=== PATIENT | male | born 1980 | race Caucasian/White ===

== ENCOUNTER 2022-03-23 14:57 | Emergency (ER) | payer OTHER, SELFPAY ==
[2022-03-23 15:20] VITALS: BP 135/86; PULSE 96; RESP 16; TEMP 36.2; O2SAT 99; BMI 23.0
--- NOTE | 2022-03-23 17:03 | ED_ITS ---
HPI - General Adult General: Chief complaint: General Medical Stated complaint: rapid weight loss Time Seen by Provider: 03/23/22 17:03 History of Present Illness: Patient comes in for nausea and vomiting and diarrhea starting on Wednesday. Patient did have a low-grade fever at first but has continued to persist with vomiting and diarrhea. Spouse reports that he has lost about 5 pounds over the last 3 days. Patient appears unwell but not toxic. Patient does have episodes of vomiting in the ER. Associated symptoms: Reports nausea and vomiting Review of Systems Const: Reports: fever(s) GI: Reports: nausea, vomiting and diarrhea PFSH ED PFSH: Medical History Environmental and seasonal allergies Surgical History No history of previous surgery Family History Other Cancer Dementia Diabetes Hypertension Stroke Social History Smoking and tobacco status: never smoked Second hand smoke exposure: No Smoking risk assessment/counseling performed?: No Alcohol intake: never Desire information about alcohol rehabilitation?: No Counseling given: No Desire information about substance/drug rehabilitation?: No Counseling given: No Adopted: No Caregiver/support person: No Lives independently: Yes Household members: spouse Housing: House Marital status: Number of children: 2 service: No Current occupational status: employed Pets and animals: Yes Pets & animals: cat(s) and dog(s) Current gender identity: Male Physical Exam Const: COMMON NORMALS: alert HENMT: COMMON NORMALS: normocephalic HEAD & SCALP: normocephalic Neck/C-Spine: COMMON NORMALS: full ROM Chest: COMMONS NORMALS: normal palpation of entire chest wall GI: COMMON NORMALS: Soft to palpation and non-tender PALPATION: Yes Soft to palpation : COMMON NORMALS: Yes no CVA tenderness BLADDER/KIDNEY EXAM: Yes no CVA tenderness Back/Pelvis: COMMON NORMALS: no CVA tenderness Neuro: SENSORIUM/ORIENTATION: Yes alert Skin: COMMON NORMALS: turgor normal GENERAL SKIN EXAM: turgor normal Course Vital Signs: Vital signs: Vital Signs Temperature 97.2 F L 03/23/22 15:20 Pulse Rate 96 03/23/22 15:20 Respiratory Rate 16 03/23/22 15:20 Blood Pressure 135/86 03/23/22 15:20 Pulse Oximetry 99 03/23/22 15:20 [facility] - General Adult Medical Decision Making 42-year-old male comes in today with nausea vomiting and diarrhea for the last 3 days. Patient continues have stomach cramping and has lost a total of 5 pounds. On exam abdomen soft with some mild tenderness generalized. Vital signs are normal. Skin is warm and dry. Oral mucosa is dry. Differential diagnosis is gastroenteritis, dehydration, appendicitis. Laboratory values suggested dehydration with sodium 131 and potassium 3.1 and a creatinine 1.0. CBC was unremarkable. CT scan noted enteritis. Patient was rehydrated with 2 L of crystalloid solution, given ondansetron and Lomotil for symptoms. Patient did improved after IV fluids. Patient was able to tolerate sips of water water. Patient reported understanding of care plan and need for follow-up or return to the ER. Lab Data 03/23/22 17:46 03/23/22 17:46 Radiology Impressions Abdomen/Pelvis CT 03/23/22 17:14 IMPRESSION: 1. Prominent fluid in the small bowel and ascending colon suggestive of an enterocolitis. 2. Diverticulosis without diverticulitis. 3. Several left hepatic lobe sub cm cysts. 4. Bilateral renal cysts, negative for follow-up advised. COMMENTS: Consistent with the [employer]'s Incidental Findings Committee white paper (J Am Dominic Radiol 2018): Any incidental renal lesion less than 1 cm or classified as too small to characterize, or any incidental cystic renal lesion characterized as simple-appearing, is likely benign. No follow-up imaging is recommended for these lesions per consensus recommendations based on imaging criteria. Laboratory Results WBC 5.7 10^3/uL (4.0-10.0) 03/23/22 17:46 RBC 5.67 10^6/uL (4.1-5.3) H 03/23/22 17:46 Hgb 16.3 g/dL (11.7-16.6) 03/23/22 17:46 Hct 48.4 % (42.0-52.0) 03/23/22 17:46 MCV 85.4 fl (80-94) 03/23/22 17:46 MCH 28.7 pg (28.0-34.0) 03/23/22 17:46 MCHC 33.7 g/dL (30.0-36.0) 03/23/22 17:46 RDW 12.3 % (12.1-15.1) 03/23/22 17:46 Plt Count 183 10^3/cmm (130-400) 03/23/22 17:46 MPV 8.8 fL (7.4-10.4) 03/23/22 17:46 Neut % (Auto) 52.4 % 03/23/22 17:46 Lymph % (Auto) 35.2 % 03/23/22 17:46 [place] % (Auto) 11.1 % 03/23/22 17:46 Eos % (Auto) 0.5 % 03/23/22 17:46 Baso % (Auto) 0.5 % 03/23/22 17:46 Neut # (Auto) 3.00 10^3/uL (1.8-7.7) 03/23/22 17:46 Lymph # (Auto) 2.0 10^3/uL (0.8-4.8) 03/23/22 17:46 [place] # (Auto) 0.6 10^3/uL (0.2-0.9) 03/23/22 17:46 Eos # (Auto) 0.0 10^3/uL (0.0-0.8) 03/23/22 17:46 Baso # (Auto) 0.0 10^3/uL (0.0-0.1) 03/23/22 17:46 Nucleated RBC % (auto) 0 % 03/23/22 17:46 Nucleated RBCs # 0.0 /100WBC 03/23/22 17:46 Sodium 131 mmol/L (136-145) L 03/23/22 17:46 Potassium 3.1 mmol/L (3.5-5.1) L 03/23/22 17:46 Chloride 96 mmol/L (98-107) L 03/23/22 17:46 Carbon Dioxide 25 mmol/L (22-29) 03/23/22 17:46 Anion Gap 13.1 (5-19) 03/23/22 17:46 BUN 9 mg/dL (6-20) 03/23/22 17:46 Creatinine 1.0 mg/dL (0.7-1.2) 03/23/22 17:46 GFR Calculation 81.9 mL/min (90-130) L 03/23/22 17:46 Glucose 94 mg/dL (65-115) 03/23/22 17:46 Calculated Osmolality 270 mOsm/kg (285-295) L 03/23/22 17:46 Calcium 9.5 mg/dL (8.5-10.5) 03/23/22 17:46 Total Bilirubin 1.1 mg/dL (0.15-1.2) 03/23/22 17:46 AST 20 U/L (0-40) 03/23/22 17:46 ALT 15 U/L (0-41) 03/23/22 17:46 Alkaline Phosphatase 62 U/L (40-130) 03/23/22 17:46 C-Reactive Protein 9.5 mg/L (0.0-4.9) H 03/23/22 17:46 Total Protein 7.8 g/dL (6.6-8.7) 03/23/22 17:46 Albumin 4.1 g/dL (3.5-5.2) 03/23/22 17:46 Globulin 3.7 g/dL (1.3-4.6) 03/23/22 17:46 Urine Color Yellow (Yellow) 03/23/22 18:21 Urine Appearance Clear (CLEAR) 03/23/22 18:21 Urine pH 5 (5-7) 03/23/22 18:21 Ur Specific [place] 1.005 (1.005-1.030) 03/23/22 18:21 Urine Protein Neg (Negative) 03/23/22 18:21 Urine Glucose (UA) Norm (Normal) 03/23/22 18:21 Urine Ketones Negative (Negative) 03/23/22 18:21 Urine Blood 2+ (Negative) H 03/23/22 18:21 Urine Nitrate Negative (Negative) 03/23/22 18:21 Urine Bilirubin Neg (Negative) 03/23/22 18:21 Urine Urobilinogen Norm mg/dL (Negative) 03/23/22 18:21 Ur Leukocyte Esterase Negative (Negative) 03/23/22 18:21 Urine RBC 0-4 /hpf (0-2) H 03/23/22 18:21 Urine WBC 0-4 /hpf (0-5) H 03/23/22 18:21 Ur Squamous Epith Cells None /hpf (0-5) 03/23/22 18:21 Amorphous Sediment Not Reportable 03/23/22 18:21 Urine Bacteria 3+ /hpf (NONE) H 03/23/22 18:21 Discharge Plan Discharge Patient Disposition: Home Clinical Impression: Gastroenteritis, Dehydration Condition: Stable Prescriptions: New ondansetron 4 mg tablet,disintegrating 4 mg PO Q8H PRN (Reason: nausea and vomiting) Qty: 10 0RF Imodium A-D 2 mg tablet 2 mg PO Q4H PRN (Reason: loose stool) Qty: 20 0RF Rx Instructions: administer after each loose stool until symptoms controlled; do not exceed 16 mg per 24 hrs No Action azithromycin [Zithromax Z-Theron] 250 mg tablet See Rx Instructions PO .COMPLEX Qty: 6 0RF Rx Instructions: For 250 mg dose pack: take 500 mg today (day 1), then 250 mg for 4 days (days 2-5) PO levocetirizine [Xyzal] 5 mg tablet 5 mg PO DAILY 90 Days Qty: 90 1RF Discharge Orders: Discharge ED (Routine); Ordered 03/23/22 Ordered By: Diego Yeh Referrals: Kimberly Boyce, [facility] [Primary Care Provider] - Discharge Diet: Advance as tolerated Discharge Activity: Increase activity as tolerated Patient Instructions: Dehydration (ED), Gastroenteritis (ED) Activity Restrictions/Additional Instructions: Drink frequent sips of water and electrolyte solution to maintain hydration. Use electrolyte solution at least 24 ounces a day to help maintain electrolytes especially while having diarrhea stools. Drinking small sips of water even teaspoon size every 5 minutes will maintain hydration. Follow-up with primary care as needed. Return to ER for worsening symptoms such as blood in vomit or stool, lightheadedness or passing out, fever greater than 100.4, uncontrolled abdominal pain, or new concerns. Coding Level of Care Code ED Prototype Sewer for Thor Fwd Exam Detailed
--- NOTE | 2022-03-23 17:14 | CTR_ITS ---
PROCEDURE INFORMATION: Exam: CT Abdomen And Pelvis With Contrast Exam date and time: 03/23/2022 5:50 PM Age: 42 years old Clinical indication: Other: Weight loss, diarrhea TECHNIQUE: Imaging protocol: Computed tomography of the abdomen and pelvis with contrast. Radiation optimization: All CT scans at this facility use at least one of these dose optimization techniques: automated exposure control; mA and/or kV adjustment per patient size (includes targeted exams where dose is matched to clinical indication); or iterative reconstruction. Contrast material: OMNI 350; Contrast volume: 100 ml; Contrast route: INTRAVENOUS (IV); COMPARISON: No relevant prior studies available. RADIATION DOSE METRICS: Total DLP (mGy-cm): 425.15 FINDINGS: Liver: Several left hepatic lobe sub cm cysts. Gallbladder and bile ducts: Normal. No calcified stones. No ductal dilation. Pancreas: Normal. No ductal dilation. Spleen: Normal. No splenomegaly. Adrenal glands: Normal. No mass. Kidneys and ureters: Bilateral renal cysts, negative for follow-up advised. Stomach and bowel: Prominent fluid in the small bowel and ascending colon suggestive of an enterocolitis. Diverticulosis without diverticulitis. Appendix: No evidence of appendicitis. Intraperitoneal space: Unremarkable. No free air. No significant fluid collection. Vasculature: Unremarkable. No abdominal aortic aneurysm. Lymph nodes: Unremarkable. No enlarged lymph nodes. Urinary bladder: Unremarkable as visualized. Reproductive: Unremarkable as visualized. Bones/joints: Unremarkable. No acute fracture. Soft tissues: Unremarkable. CT/CT abdomen pelvis w con* [id number] IMPRESSION: 1. Prominent fluid in the small bowel and ascending colon suggestive of an enterocolitis. 2. Diverticulosis without diverticulitis. 3. Several left hepatic lobe sub cm cysts. 4. Bilateral renal cysts, negative for follow-up advised. COMMENTS: Consistent with the [employer]'s Incidental Findings Committee white paper (J Am Dominic Radiol 2018): Any incidental renal lesion less than 1 cm or classified as too small to characterize, or any incidental cystic renal lesion characterized as simple-appearing, is likely benign. No follow-up imaging is recommended for these lesions per consensus recommendations based on imaging criteria.
[2022-03-23] MEDS: iohexol 350 mg/mL 500 mL Btl (per mL) IV (18:00)
[2022-03-23] MEDS: sodium chloride 0.9% 1,000 ML 999 ML IV (18:09)
[2022-03-23 18:14] LABS: Basophils % 0.5 %; Eosinophils % 0.5 %; Hematocrit 48.4 % (42.0-52.0); Hemoglobin 16.3 g/dL (11.7-16.6); Lymphocytes % 35.2 %; Mean Corpuscular HGB Conc 33.7 g/dL (30.0-36.0); Mean Corpuscular Hemoglobin 28.7 pg (28.0-34.0); Mean Corpuscular Volume 85.4 fl (80-94); Mean Platelet Volume 8.8 fL (7.4-10.4); Monocytes # 0.6 10^3/uL (0.2-0.9); Monocytes % 11.1 %; Neutrophils % 52.4 %; Nucleated Red Blood Cells % 0 %; Platelet Count 183 10^3/cmm (130-400); Red Blood Count 5.67 10^6/uL (4.1-5.3); Red Cell Distribution Width 12.3 % (12.1-15.1); White Blood Count 5.7 10^3/uL (4.0-10.0)
[2022-03-23 18:30] LABS: Alanine Aminotransferase 15 U/L (0-41); Albumin Level 4.1 g/dL (3.5-5.2); Alkaline Phosphatase 62 U/L (40-130); Anion Gap 13.1 (5-19); Aspartate Amino Transferase 20 U/L (0-40); Blood Urea Nitrogen 9 mg/dL (6-20); C Reactive Protein 9.5 mg/L (0.0-4.9); Calcium 9.5 mg/dL (8.5-10.5); Carbon Dioxide 25 mmol/L (22-29); Chloride 96 mmol/L (98-107); Globulin 3.7 g/dL (1.3-4.6); Glomerular Filtration Rate 81.9 mL/min (90-130); Glucose 94 mg/dL (65-115); Osmolality Calculated 270 mOsm/kg (285-295); Potassium 3.1 mmol/L (3.5-5.1); Sodium 131 mmol/L (136-145); Total Bilirubin 1.1 mg/dL (0.15-1.2); Total Protein 7.8 g/dL (6.6-8.7)
[2022-03-23 18:51] LABS: Add Urine Microscopic? YES; Bilirubin Urine Neg (Negative); Blood Urine 2+ (Negative); Glucose Urine UA Norm (Normal); Ketones Urine Negative (Negative); Leukocyte Esterase Urine Negative (Negative); Nitrate Urine Negative (Negative); Protein Urine Neg (Negative); Specific Gravity, Urine 1.005 (1.005-1.030); Urine Appearance Clear (CLEAR); Urine Color Yellow (Yellow); Urobilinogen Urine Norm (Negative); pH Urine 5 (5-7)
[2022-03-23] MEDS: lactated ringers 1,000 ML 999 ML IV (18:55)
[2022-03-23] MEDS: potassium chloride ER 20 mEq Tablet PO (19:03)
[2022-03-23] MEDS: diphenoxylate/atropine Tablet 2 TAB PO (19:03)
[2022-03-23 19:09] LABS: Add Urine Culture? Yes; Bacteria Urine 3+ /hpf; RBC Urine 0-4 /hpf (0-2); WBC Urine 0-4 /hpf (0-5)
== END 2022-03-23 19:40 | disposition home or self-care (01) ==
PROVIDERS: Emergency Provider Nurse Practitioner Family; PCP Nurse Practitioner
DX: K52.9 Noninfective gastroenteritis and colitis, unspecified (principal); E86.0 Dehydration
CPT/HCPCS: 74177; 80053; 81001; 85025; 86140; 87086; 96360; 96361; 99285; J7030; J7120; Q9967

== ENCOUNTER → 2022-12-04 11:05 | Outpatient (BNVA) | payer OTHER, SELFPAY | PROVIDERS: PCP Nurse Practitioner; Visit Provider Nurse Practitioner Family | DX: R53.83 Other fatigue (principal) | CPT/HCPCS: 80053; 84443; 85025; 86618; 86666; 86757 ==

== ENCOUNTER 2022-12-14 00:04 | Emergency (ER) | payer OTHER, SELFPAY ==
[2022-12-14 00:14] VITALS: BP 116/82; PULSE 76; RESP 16; TEMP 36.7; O2SAT 97; BMI 23.0
--- NOTE | 2022-12-14 00:20 | ED_ITS ---
HPI - Anxiety General: Stated Complaint: Confused\Does feel like himself Time Seen by Provider: 12/14/22 00:12 Source: patient Mode of arrival: ambulatory Limitations: no limitations History of Present Illness: 42-year-old male states over the last 2 to 3 days has been feeling fatigued and sluggish also have anxiety. His states that he had taken her Paxil for roughly a week and it started feeling like this after he has not taken the last 3 to 4 days. He states that he just feels like he is in a brain fog. Denies chest pain denies headache he is answering all my questions appropriately Associated symptoms: Deny chest pain, chills, fever(s), nausea or vomiting Review of Systems Const: Denies: fever(s) or chills Eyes: Denies: blurry vision ENMT: Denies: throat pain or dental pain Card: Denies: chest pain Resp: Denies: dyspnea GI: Denies: abdominal pain, nausea, vomiting or diarrhea Musc: Denies: neck pain or back pain Skin/Breast: Denies: rash PFSH ED PFSH: Medical History Environmental and seasonal allergies Surgical History No history of previous surgery Family History Other Cancer Dementia Diabetes Hypertension Stroke Social History Smoking and tobacco status: never smoked Second hand smoke exposure: No Smoking risk assessment/counseling performed?: No Alcohol intake: never Desire information about alcohol rehabilitation?: No Counseling given: No Substance/Drug Use: never Desire information about substance/drug rehabilitation?: No Counseling given: No Adopted: No Caregiver/support person: No Lives independently: Yes Household members: spouse Housing: House Marital status: Number of children: 2 service: No Current occupational status: employed Pets and animals: Yes Pets & animals: cat(s) and dog(s) Do you think of yourself as: Straight/Heterosexual Current gender identity: Male Physical Exam Const: COMMON NORMALS: no acute distress, patient oriented x3 and healthy appearing HENMT: COMMON NORMALS: normocephalic and atraumatic HEAD & SCALP: normocephalic and atraumatic Eye: COMMON NORMALS: Equal, round and reactive pupils present and EOMs intact bilaterally PUPIL: Yes Equal, round and reactive pupils present Neck/C-Spine: COMMON NORMALS: full ROM and supple Chest: COMMONS NORMALS: normal inspection of the chest Resp: COMMON NORMALS: normal respiratory effort, No retractions, No use of accessory muscles and clear to auscultation bilaterally AUSCULTATION: clear to auscultation bilaterally Cardio: COMMON NORMALS: regular rate, regular rhythm and No murmurs present (Cardio) RATE: regular rate RHYTHM: regular rhythm Extremity: COMMON NORMALS: normal to inspection and full ROM Neuro: COMMON NORMALS: patient oriented x3, moves all extremities and no focal motor deficits CRANIAL NERVES: Yes CN normal except as noted SPEECH: speech normal GAIT: Yes Normal gait present MOTOR EXAM: 5/5 motor strength present throughout Psych: COMMON NORMALS: mental status grossly normal, Normal thought process present and cooperative THOUGHT PROCESS: Normal thought process present Skin: COMMON NORMALS: no rashes or lesions noted and no wounds GENERAL SKIN EXAM: no rashes or lesions noted MDM - Anxiety Medical Decision Making Patient presents here with feelings of fatigue and anxiety. I did plan on drawing blood when they went to stick me said he did not want it and he just wanted to leave I did do a full neuro exam he has no signs of any neurodeficits I did speak to him at length and informed him I would like to check baseline lab work since he is feeling this way but he states that he just wanted reassurance and wants to just go home and follow-up his PCP Medical Records I reviewed the patient's medical records. Lab Data I reviewed the patient's lab results. Discharge Plan Discharge Patient Disposition: Home Clinical Impression: Anxiety Condition: Stable Prescriptions: No Action bupropion HCl [Wellbutrin XL] 150 mg tablet extended release 24 hr 150 mg PO QAM Qty: 30 0RF prednisone 20 mg tablet 20 mg PO BID Qty: 6 0RF hydroxyzine pamoate 50 mg capsule 50 mg PO BID PRN (Reason: sinus symptoms) Qty: 60 5RF Discharge Orders: Discharge ED (Routine); Ordered 12/14/22 Ordered By: Susy Arellano Referrals: Maribeth Holloway MD [Primary Care Provider] - 1-3 days Discharge Diet: Advance as tolerated Discharge Activity: Resume usual activity Patient Instructions: Anxiety (ED) Coding Level of Care Code ED Spectrographic Analyst for Thor Lentz
[2022-12-14 00:23] VITALS: RESP 16
== END 2022-12-14 00:23 | disposition home or self-care (01) ==
PROVIDERS: Emergency Provider Emergency Medicine; PCP Family Medicine
DX: F41.9 Anxiety disorder, unspecified (principal)
CPT/HCPCS: 99281